=== PATIENT | female | born 1985 | race Two or more races ===

== ENCOUNTER 2017-06-22 15:07 | Emergency (ER) | payer MEDICAID ==
--- NOTE | 2017-06-22 15:37 | ED Physician Chart ---
ED Chief Complaint/HPI - Patient Information Date Seen:: 06/22/17 Time Seen:: 15:30 Chief Complaint:: rt ear pain History of Present Illness:: x 1 day w pain at rt ear. sound is muffled. no drainage. mild industrial spraypainter cough. no rhinitis. no fever. no neck pain or stiff. no [facility]. no n/v/d. has felt a pain at rt post sup molar..but no swelling in mouth or broken crown. no trouble breathing or swallowing. no hx of swimming. no DM hx or other pmh. Allergies:: Allergies Allergy/AdvReac Type Severity Reaction Status Date / Time Penicillins Allergy Verified 06/22/17 15:13 Vitals:: Vital Signs - 8 hr 06/22/17 15:14 Temp 98.2 F HR 88 RR 17 BP 125/54 O2 Sat % 96 Historian:: Patient ED Review of Systems - Review of Systems General/Constitutional: No fever, No chills, No weight loss, No weakness, No diaphoresis, No edema, No loss of appetite Skin: No skin lesions, No rash, No bruising Head: No headache, No light-headedness Eyes: No loss of vision, No pain, No diplopia ENT: Earache, No nasal drainage, No sore throat, No tinnitus Neck: No neck pain, No swelling, No thyromegaly, No stiffness, No mass noted Cardio Vascular: No chest pain, No palpitations, No PND, No orthopnea, No edema Pulmonary: No SOB, Cough, No cough, No sputum, No wheezing GI: No nausea, No vomiting, No diarrhea, No pain, No melena, No hematochezia, No constipation, No hematemesis G/U: No dysuria, No frequency, No hematuria Musculoskeletal: No bone or joint pain, No back pain, No muscle pain Endocrine: No polyuria, No polydipsia Psychiatric: No prior psych history, No depression, No anxiety, No suicidal ideation Hematopoietic: No bruising, No lymphadenopathy Allergic/Immuno: No urticaria, No angioedema Neurological: No syncope, No focal symptoms, No weakness, No paresthesia, No headache, No seizure, No dizziness, No confusion, No vertigo ED Past Medical History - Past Medical History Past Medical History: No significant medical hx Social History: Medication: Reviewed Family Medical History - Family Member Mother Living Status: Still Living Other Medical History: Denies of any medical problem ED Physical Exam - Physical Examination General/Constitutional: Awake, Well-developed, well-nourished, Alert, No distress, GCS 15, Non-toxic appearing, Ambulatory Head: Atraumatic Eyes: Lids, conjuctiva normal, PERRL, EOMI Skin: Nl inspection, No rash, No skin lesions, No ecchymosis, Well hydrated, No lymphadenopathy ENMT: External ears, nose nl, Nasal exam nl, Lips, teeth, gums nl Other ENMT comments:: left ear wnl rt ear has clear tm but canal is narrowed w edema and sltly reddened. oral exam ok. no swelling in mouth or broken crown. no pain to palpation of teeth. no peridontal abscess. no trismus. no trouble breathing or swallowing. Neck: Nontender, Full ROM w/o pain, No JVD, No nuchal rigidity, No bruit, No mass, No stridor Respiratory: Nl effort/Exclusion, Clear to Auscultation, No Wheeze/Rhonchi/Rales Cardio Vascular: RRR, No murmur, gallop, rubs, NL S1 S2 GI: No tenderness/rebounding/guarding, No organomegaly, No hernia, Normal BS's, Nondistended, No mass/bruits, No McBurney tenderness : No CVA tenderness Extremities: No tenderness or effusion, Full ROM, normal strength in all extremities, No edema, Normal digits & nails Neuro/Psych: Alert/oriented, DTR's symmetric, Normal sensory exam, Normal motor strength, Judgement/insight normal, Mood normal, Normal gait, No focal deficits Misc: normal gait, Normal back, No paraspinal tenderness ED Septic Shock - . Is Septic Shock (SBP<90, OR Lactate>4 mmol\L) present?: No - <6hrs of presentation: Vital Signs: Vital Signs - 8 hr /09/26 15:14 Temp 98.2 F HR 88 RR 17 BP 125/54 O2 Sat % 96 ED Reassessment (Disposition) - Reassessment Reassessment:: fsbs= 116 Reassessment Condition:: Unchanged - Diagnosis Diagnosis:: otitis externa rt ear - Aftercare/Follow up Instructions Aftercare/Follow-Up Instructions:: Counseled pt regarding lab results/diagnosis & need follow up Medication Prescribed:: rx cortisporin otic zainab, amox po - Patient Disposition Discharge/Transfer:: Home Condition at Disposition:: Unchanged
== END 2017-06-22 16:02 | disposition home or self-care (01) ==
LOC: ER 15:07
DX: H60.91 Unspecified otitis externa, right ear (principal)
CPT/HCPCS: 82948-90; Z7502